=== PATIENT | female | born 1995 | race Caucasian/White ===

== ENCOUNTER → 2017-05-08 | Outpatient (CLI) | payer BC ==
[~2017-05-08] MED LIST: COLACE 100MG C100 MG PO
== END ==
LOC: RAD 17:37
DX: M25.532 Pain in left wrist (principal)
CPT/HCPCS: 73110

== ENCOUNTER → 2021-05-03 | Outpatient (CLI) | payer OTHER ==
[~2021-05-03] MED LIST changes: +AMBIEN5 MG PO; +IBUPROFEN600 MG PO; +LORTAB 5-325 M1 EACH PO; +MIRALAX17 GM PO; +NUVARING VAGIN1 EACH VG; +TYLENOL W/CODEIN1 E1 PO; +ZANAFLEX4 MG PO
== END ==
LOC: OPSV 11:41
DX: O21.0 Mild hyperemesis gravidarum (principal); O10.911 Unspecified pre-existing hypertension complicating pregnancy, first trimester; O99.341 Other mental disorders complicating pregnancy, first trimester; F32.9 Major depressive disorder, single episode, unspecified; O99.011 Anemia complicating pregnancy, first trimester; D64.9 Anemia, unspecified; Z3A.12 12 weeks gestation of pregnancy
CPT/HCPCS: G0463

== ENCOUNTER 2021-06-20 12:23 | Outpatient (CLI) | payer OTHER | END 2021-06-20 16:41 | disposition home or self-care (01) | LOC: GENOP 12:23 | PROVIDERS: Obstetrics & Gynecology | DX: O47.02 False labor before 37 completed weeks of gestation, second trimester (principal); O10.912 Unspecified pre-existing hypertension complicating pregnancy, second trimester; O99.012 Anemia complicating pregnancy, second trimester; D64.9 Anemia, unspecified; O99.352 Diseases of the nervous system complicating pregnancy, second trimester; G43.909 Migraine, unspecified, not intractable, without status migrainosus; O99.342 Other mental disorders complicating pregnancy, second trimester; F32.9 Major depressive disorder, single episode, unspecified; Z3A.20 20 weeks gestation of pregnancy; Z79.899 Other long term (current) drug therapy | CPT/HCPCS: 80307; 81001; 96360; 96361; J7120 ==